=== PATIENT | female | born 2000 | race Hispanic/Latino ===

== ENCOUNTER 2022-08-08 16:20 | Emergency (ER) | payer OTHER ==
[~2022-08-08] VITALS: Ht 157.5 cm; Wt 55.3 kg
[2022-08-08 17:00] VITALS: BP 120/70
[2022-08-08] MEDS ORDERED: TETRACAINE HCL 0.5% 4 ML OPHTH SOLN ONE (17:03)
[2022-08-08] MEDS ORDERED: FLUORESCEIN SODIUM 1 STRIP STRIP ONE ×2 (17:03→17:04)
[2022-08-08] MEDS ORDERED: NEO/5DRO7 OU (17:23)
[2022-08-08] MEDS ORDERED: FLUORESCEIN SODIUM 1 STRIP STRIP OP SCH (17:30)
[2022-08-08] MEDS ORDERED: TETRACAINE HCL 0.5% 4 ML OPHTH SOLN OP ONE (17:30)
== END 2022-08-08 17:31 | disposition home or self-care (01) ==
LOC: EDH 16:20
DX: S05.02XA Injury of conjunctiva and corneal abrasion without foreign body, left eye, initial encounter (principal); S05.01XA Injury of conjunctiva and corneal abrasion without foreign body, right eye, initial encounter; X58.XXXA Exposure to other specified factors, initial encounter; Y93.89 Activity, other specified; Y92.89 Other specified places as the place of occurrence of the external cause; Y99.8 Other external cause status